=== PATIENT | male | born 1975 | race Caucasian/White ===

== ENCOUNTER 2021-02-14 02:57 | Emergency (ER) | payer OTHER ==
[2021-02-14 03:13] VITALS: TEMP 97.7; BMI 29.8
[2021-02-14 04:21] LABS: BASO % 0.4 % (0-2.0); EOS % 0.2 % (0-4.5); HEMATOCRIT 31.5 % (35.4-49); HEMOGLOBIN 10.5 GM/dL (11.7-16.9); LYMPH % 8.1 % (8-40); MCHC 33.2 g/dl (32.0-35.9); MEAN CELL VOLUME 75.3 fl (80-96); MEAN PLT VOLUME 7.5 fl (7.5-11.1); MONO % 5.4 % (3.8-10.2); NEUT % 85.9 % (42.8-82.8); PLATELET COUNT 154 10^3/uL (134-434); RBC 4.19 M/mm3 (4.00-5.60); RDW 15.1 % (11.9-15.9); WHITE BLOOD COUNT 7.8 K/mm3 (4.0-10.0)
[2021-02-14] MEDS ORDERED: ACETAMINOPHEN 500 MG TABLET (FP) PO ONE (04:22)
[2021-02-14] MEDS ORDERED: ACETAMINOPHEN 325 MG TABLET (FP) PO ONE (04:22)
[2021-02-14 04:25] LABS: EPI CELLS 5 /uL (0-25.1); HYALINE CASTS 1 /uL (0-3.1); URINE APPEARANCE CLEAR; URINE BACTERIA 3 /uL (0-1359); URINE BILIRUBIN NEGATIVE (NEGATIVE); URINE COLOR YELLOW; URINE GLUCOSE (UA) NEGATIVE (NEGATIVE); URINE KETONE NEGATIVE (NEGATIVE); URINE LEUK ESTERASE NEGATIVE (NEGATIVE); URINE NITRITE NEGATIVE (NEGATIVE); URINE PROTEIN 3+ (NEGATIVE); URINE RBC 736 /uL (0-23.9); URINE WBC 7 /uL (0-25.8)
[2021-02-14] MEDS ORDERED: ACETAMINOPHEN 325 MG TABLET (FP) ONE (04:29)
[2021-02-14 04:31] LABS: INR 1.23 (0.83-1.09); PROTHROMBIN TIME (PATIENT) 13.8 SEC (9.7-13.0)
[2021-02-14 04:34] LABS: ACTIVATED PTT 32.3 SECONDS (25.2-36.5)
[2021-02-14 04:40] LABS: CHLORIDE 101 mmol/L (98-107); SODIUM 136 mmol/L (136-145)
[2021-02-14 04:42] LABS: CALCIUM 8.3 mg/dL (8.5-10.1)
[2021-02-14 04:43] LABS: ALBUMIN 2.7 g/dl (3.4-5.0); ANION GAP 9 MMOL/L (8-16); BLOOD UREA NITROGEN 20.6 mg/dL (7-18); CO2 27 mmol/L (21-32)
[2021-02-14 04:45] LABS: GLUCOSE,RANDOM 122 mg/dL (74-106)
[2021-02-14 04:46] LABS: CREATININE 1.2 mg/dL (0.55-1.3); SGOT/AST 34 U/L (15-37); SGPT/ALT 23 U/L (13-61)
[2021-02-14 04:47] LABS: BILIRUBIN,TOTAL 0.5 mg/dL (0.2-1); TOT PROT 7.7 g/dl (6.4-8.2)
[2021-02-14 04:48] LABS: ALK PHOS 95 U/L (45-117)
[2021-02-14] MEDS ORDERED: ESMOLOL 2500 MG/250 ML 2,500,000 MCG/250 ML INFUS.BAG IVPB SCH (05:45)
[2021-02-14] MEDS ORDERED: ESMOLOL 2500 MG/250 ML 2,500,000 MCG/250 ML INFUS.BAG IVPB ONE (05:58)
[2021-02-14] MEDS ORDERED: LABETALOL HCL INJECTION 300 MG in SODIUM CHLORIDE 240 ML IVPB SCH (06:45)
[2021-02-14] MEDS ORDERED: LABETALOL HCL 5 MG/1 ML (100MG/20 ML VIAL) IVPUSH ONE (06:52)
[2021-02-14 06:58] VITALS: BP 146/92; PULSE 86
== END 2021-02-14 07:00 | disposition short-term general hospital (02) ==
LOC: JER 02:57
PROC: 3E033NZ Introduction of Analgesics, Hypnotics, Sedatives into Peripheral Vein, Percutaneous Approach (ICD-10-PCS; principal; 2021-02-14)
DX: I71.02 Dissection of abdominal aorta (principal)
CPT/HCPCS: 36415; 71275-TC; 74174-TC; 80053; 81003; 82550; 82553; 83605; 84484; 85025; 85610; 85730; 86850; 86900; 86901; 87086; 93005; 93010; 99291; C9803; U0003; U0005